=== PATIENT | male | born 1935 | race Caucasian/White ===

== ENCOUNTER → 2020-09-04 | Outpatient (CLI) | payer MEDICARE ==
--- NOTE | 2020-09-04 08:24 | CT ---
EXAMINATION TYPE: CT abdomen wo con DATE OF EXAM: 09/04/2020 HISTORY: Liver abnormalities, Cholecystitis CT DLP: 186.3 mGycm. Automated Exposure Control for Dose Reduction was Utilized. TECHNIQUE: CT scan of the abdomen is performed without oral or IV contrast. COMPARISON: CT abdomen and pelvis February 05, 2013 FINDINGS: Within the limitations of a non-contrast study, the following observations are made. LUNG BASES: Some peripheral reticulation in both bases. Additional mild linear scarring anterior left lung base. Suspect chronic fibrosis. LIVER/GB: Gallbladder it is dilated and has distended margins. No CT dense intraluminal gallstones. N o suspicious surrounding fat stranding or wall thickening PANCREAS: Fairly moderate generalized fat replaced atrophy. SPLEEN: No significant abnormality is seen. ADRENALS: No significant abnormality is seen. KIDNEYS: No renal stones or hydronephrosis. Some cortical thinning bilaterally. There is 1.4 cm thin- walled exophytic cyst laterally lower pole level left kidney axial image 35. BOWEL: Normal-appearing appendix from cecum in the right lower quadrant. No suspicious small or large bowel dilatation. LYMPH NODES: No greater than 1cm abdominal lymph nodes are appreciated. OSSEOUS STRUCTURES: Levoconvex scoliosis centered at L1-L2 level. Moderate to severe multilevel spurr ing in the spine. Multilevel facet arthropathy in the lower lumbar spine. OTHER: Mild/moderate calcified plaque is slightly ectatic abdominal aorta. No aneurysm. IMPRESSION: Gallbladder is dilated with distended margins. It had somewhat similar apparent 2012 stud y though slightly less prominent. No convincing CT evidence for acute cholecystitis. No worrisome int rahepatic mass or intrahepatic ductal dilatation on noncontrast CT. No acute findings are evident.
== END | disposition home or self-care (01) ==
LOC: RADCTMAIN 07:42
PROVIDERS: ATTEND Family Medicine
DX: K82.8 Other specified diseases of gallbladder (principal)
CPT/HCPCS: 74150

== ENCOUNTER → 2020-09-18 | Outpatient (CLI) | payer MEDICARE ==
--- NOTE | 2020-09-18 16:23 | NM ---
EXAMINATION TYPE: NM hepatobiliary wo EF DATE OF EXAM: 09/18/2020 COMPARISON: CT 09/04/2020 HISTORY: 84-year-old male K81.9, cholecystitis TECHNIQUE: After the intravenous administration of 5.19 mCi Tc 99m Mebrofenin hepatobiliary scintigra phy is performed. Immediate images post injection. FINDINGS: Satisfactory initial uptake of tracer by the liver. Small bowel is visualized at 20 minutes. Gallblad faustino is not visualized up to 2.5 hours. IMPRESSION: Imaging up to 2.5 hours with nonvisualization of the gallbladder. Findings can be compatible with acu te cholecystitis.
== END | disposition home or self-care (01) ==
LOC: RADNMMAIN 12:41
PROVIDERS: ATTEND Family Medicine
DX: R93.2 Abnormal findings on diagnostic imaging of liver and biliary tract (principal)
CPT/HCPCS: 78226; A9537

== ENCOUNTER 2021-11-05 09:17 | Day surgery (SDC) | payer MEDICARE ==
[2021-10-31 09:07] VITALS: BMI 24.6
[~2021-11-05 09:17] MED LIST: ACETAMINOPHEN TAB 500 MG TAB PO PRN; DEXAMETHASONE SOD PHOSPHATE 4 MG/ML 1 ML VIAL IV ONE; HEPARIN SODIUM,PORCINE/PF 5,000 UNIT/0.5 ML SYRINGE SQ PRN; LACTATED RINGERS 1,000 ML IV SCH; LIDOCAINE 1% (10MG/ML) FOR IV START INTRADERMA PRN; MIDAZOLAM 2 MG/2 ML VIAL IV PRN; ONDANSETRON 4 MG/2 ML VIAL IVP ONE
--- NOTE | 2021-11-05 10:55 | P.GSHP ---
History of Present Illness H&P Date: 11/05/21 Chief Complaint: Right upper quadrant pain This is a 86-year-old male. Patient's had complaints of right upper quadrant pain. Patient has known history of gallstones. His recent HIDA scan shows nonvisualization of gallbladder. Past Medical History Past Medical History: Osteoarthritis (OA) History of Any Multi-Drug Resistant Organisms: None Reported Past Surgical History: Joint Replacement Additional Past Surgical History / Comment(s): Left knee replacement. Past Anesthesia/Blood Transfusion Reactions: No Reported Reaction Past Psychological History: No Psychological Hx Reported Smoking Status: Never smoker Past Alcohol Use History: None Reported Past Drug Use History: None Reported - Past Family History Mother Family Medical History: No Reported History Medications and Allergies Home Medications Medication Instructions Recorded Confirmed Type Multivit-Min/FA/Lycopen/Lutein 1 each PO DAILY 10/31/21 11/05/21 History [Centrum Silver Tablet] Allergies Allergy/AdvReac Type Severity Reaction Status Date / Time No Known Allergies Allergy Verified 10/31/21 08:56 Surgical - Exam Vital Signs Temp Pulse Resp BP Pulse Ox 97.4 F L 58 L 16 146/73 995 H 11/05/21 09:44 11/05/21 09:44 11/05/21 09:44 11/05/21 09:44 11/05/21 09:44 - General well developed, well nourished, no distress - Eyes PERRL - ENT normal pinna - Neck no masses - Respiratory normal expansion - Cardiovascular Rhythm: regular - Abdomen Mild right upper quadrant tenderness Abdomen: soft Assessment and Plan Assessment: Cholelithiasis Acute/chronic cholecystitis We'll perform laparoscopic cholecystectomy
[2021-11-05] MEDS ORDERED: fentaNYL (PF) 50 MCG/ML 2 ML AMP ONE (11:11)
[2021-11-05] MEDS ORDERED: LIDOCAINE 1% INJ 10MG/ML (20 ML MDV) ONE (11:11)
[2021-11-05] MEDS ORDERED: SUCCINYLCHOLINE CHLORIDE 100 MG/5 ML SYR IV ONE (11:11)
[2021-11-05] MEDS ORDERED: HYDROmorphone (PF) 1 MG/ML ONE (11:11)
[2021-11-05] MEDS ORDERED: ROCURONIUM 10 MG/ML (5 ML VIAL) IV ONE (11:11)
[2021-11-05] MEDS ORDERED: PROPOFOL 10 MG/ML 20 ML VIAL IV ONE (11:11)
[2021-11-05] MEDS ORDERED: BUPIVACAIN-EPI 0.25%-1:200,000 30 ML VIAL SQ ONE ×2 (11:14→11:33)
[2021-11-05] MEDS ORDERED: LACTATED RINGERS 1,000 ML IV ONE (11:49)
--- NOTE | 2021-11-05 12:13 | P.OP ---
Date of Procedure: 11/05/21 Preoperative Diagnosis: Acute/chronic cholecystitis Cholelithiasis Postoperative Diagnosis: Same Procedure(s) Performed: Laparoscopic cholecystectomy Anesthesia: ILIA Surgeon: Fermin Sanchez Estimated Blood Loss (ml): 10 Pathology: other (Gallbladder) Condition: stable Disposition: PACU Description of Procedure: The patient was placed on the operating table. The patient received a general endotracheal tube anesthesia. The patients abdomen was prepped and draped in the usual sterile fashion. Through an infraumbilical stab incision, the fascia of the anterior abdominal wall was grasped with a pair of Kochers and then the Veress needle was placed in the peritoneal cavity. Position of the Veress needle was confirmed with positive drop test. The abdomen was then insufflated. After adequate insufflation, the 10 mm trocar was placed in the peritoneal cavity. Following this the laparoscope was placed in the peritoneal cavity. The patient was placed in the head-up, right side up position and then a 5 mm trocar was placed in the right lateral and right subcostal position under direct visualization. A 8 mm trocar was placed in the epigastric position. The gallbladder was grasped in the fundus and infundibulum. Traction on the gallbladder was placed in the lateral and the cephalad positions. The triangle of Calot was visualized.. The cystic duct was bluntly dissected until the union of the cystic duct and common bile duct was seen. A critical view of safety was achieved. The cystic duct was then divided and sealed with the Harmonic scissors. A PDS Endoloop was then placed throughout the cystic duct stump. The cystic artery divided and sealed with the Harmonic scissors. The gallbladder was then removed from the liver bed using Harmonic scissors. The gallbladder was then extracted through the epigastric port site. Operative field was checked for any bleeding spots and Harmonic scissors was used to coagulate the liver bed. The abdomen was irrigated. The trocars were removed. The skin was closed using interrupted 3-0 Vicryl suture. Dermabond dressing were applied. The patient tolerated the procedure well.
[2021-11-05 12:22] VITALS: TEMP 97.1
[2021-11-05] MEDS ORDERED: KETOROLAC 15 MG/ML 1 ML VIAL IVP ONE (12:27)
[2021-11-05] MEDS: HYDROmorphone 0.5 MG/0.5 ML SYRINGE IVP PRN ×2 (12:37→12:48)
[2021-11-05 13:42] VITALS: RESP 16
[2021-11-05 14:09] VITALS: BP 116/63; PULSE 82
== END 2021-11-05 15:16 | disposition home or self-care (01) ==
LOC: OR 09:17
PROVIDERS: ATTEND Surgery
DX: K80.12 Calculus of gallbladder with acute and chronic cholecystitis without obstruction (principal); M19.90 Unspecified osteoarthritis, unspecified site; Z96.652 Presence of left artificial knee joint; Z97.2 Presence of dental prosthetic device (complete) (partial)
CPT/HCPCS: 88304; 47562; J1100; J0690; J2405; J2001; J3010; J1170 ×2; J1885; J0330; J2704; J1644